=== PATIENT | female | born 1965 | race Caucasian/White ===

== ENCOUNTER 2023-02-28 13:19 | Day surgery (SDC) | payer OTHER, SELFPAY ==
--- NOTE | 2023-02-28 08:48 | SUR.PREOP ---
02/28/23 Pt contacted and reviewed procedure, date, time, and prep for procedure
--- NOTE | 2023-02-28 13:23 | US_ITS ---
The [address] [address] Patient Name: JUSTIN SAENZ MRN: [id number] date: 1965 Sex: F Assigned Patient Location: [place] Current Patient Location: [place] Accession/Order Number: [id number] Exam Date: 02/28/2023 14:00 Report Date: 02/28/2023 15:05 At the request of: ROYER BERRY Procedure: US biopsy thyroid EXAMINATION: US biopsy thyroid, US biopsy FNA add lesion HISTORY: Thyroid Nodules COMPARISON: No relevant comparison available. TECHNIQUE: After obtaining informed consent, an ultrasound-guided biopsy was performed in the usual sterile manner. FINDINGS: RIGHT THYROID NODULE: IMAGING: Ultrasound BIOPSY NEEDLE: 25-gauge, 2 inch SPECIMEN TYPE, #, LOCATION: 3 fine-needle aspirates, inferior right 2.2 cm thyroid nodule MEDICATION: 2 cc 1% buffered lidocaine COMPLICATIONS: None. LABORATORY: sent for pathology and genetic testing OTHER: Negative. LEFT THYROID NODULE: IMAGING: Ultrasound BIOPSY NEEDLE: 25-gauge, 2 inch SPECIMEN TYPE, #, LOCATION: 3 fine-needle aspirates, superior left 1.8 cm thyroid nodule MEDICATION: 2 cc 1% buffered lidocaine COMPLICATIONS: None. LABORATORY: sent for pathology and genetic testing OTHER: Negative. US/US biopsy thyroid IMPRESSION: Uneventful ultrasound guided biopsy 2 separate thyroid nodules. The patient was instructed to obtain follow up care and biopsy results from the referring physician. Electronically authenticated by: CAR VEGAS Date: 02/28/2023 15:05
--- NOTE | 2023-02-28 13:28 | US_ITS ---
The [address] [address] Patient Name: JUSTIN SAENZ MRN: [id number] date: 1965 Sex: F Assigned Patient Location: US Current Patient Location: [place] Accession/Order Number: [id number] Exam Date: 02/28/2023 14:00 Report Date: 02/28/2023 15:05 At the request of: ROYER BERRY Procedure: US biopsy FNA add lesion EXAMINATION: US biopsy thyroid, US biopsy FNA add lesion HISTORY: Thyroid Nodules COMPARISON: No relevant comparison available. TECHNIQUE: After obtaining informed consent, an ultrasound-guided biopsy was performed in the usual sterile manner. FINDINGS: RIGHT THYROID NODULE: IMAGING: Ultrasound BIOPSY NEEDLE: 25-gauge, 2 inch SPECIMEN TYPE, #, LOCATION: 3 fine-needle aspirates, inferior right 2.2 cm thyroid nodule MEDICATION: 2 cc 1% buffered lidocaine COMPLICATIONS: None. LABORATORY: sent for pathology and genetic testing OTHER: Negative. LEFT THYROID NODULE: IMAGING: Ultrasound BIOPSY NEEDLE: 25-gauge, 2 inch SPECIMEN TYPE, #, LOCATION: 3 fine-needle aspirates, superior left 1.8 cm thyroid nodule MEDICATION: 2 cc 1% buffered lidocaine COMPLICATIONS: None. LABORATORY: sent for pathology and genetic testing OTHER: Negative. US/US biopsy FNA add lesion IMPRESSION: Uneventful ultrasound guided biopsy 2 separate thyroid nodules. The patient was instructed to obtain follow up care and biopsy results from the referring physician. Electronically authenticated by: CAR VEGAS Date: 02/28/2023 15:05
[2023-02-28 13:30] VITALS: BP 145/83; PULSE 62; O2SAT 96
[2023-02-28] MEDS: LIDOCAINE HCL 20 ML, SODIUM BICARBONATE 2 MEQ INJ (14:15)
== END 2023-02-28 14:50 | disposition home or self-care (01) ==
LOC: US 13:19
PROVIDERS: Radiology Diagnostic Radiology; PCP Otolaryngology; Visit Provider Otolaryngology
DX: E04.1 Nontoxic single thyroid nodule (principal)
CPT/HCPCS: 10005; 10006; 88173